=== PATIENT | male | born 1980 | race Caucasian/White ===

== ENCOUNTER 2018-12-07 22:31 | Emergency (ER) | payer MEDICAID, OTHER ==
[~2018-12-07] VITALS: Wt 85.0 kg
[2018-12-07 22:42] VITALS: Wt 85.0 kg
--- NOTE | 2018-12-07 23:51 | ERD ---
ER Documentation Chief Complaint Chief Complaint bib ra 89 c/o headache since this am HPI This is a 38-year-old male who presents here in the emergency department, brought in by ambulance for left-sided headache. Patient stated that he had a fall while he was in the shower couple of days ago, fell backwards, had a loss of consciousness and did not seek medical attention for this. Stated that he has history of headaches before but this is the worst headache of his life. Also complains of light sensitivity. Denies dizziness, neck pain, neck stiffness, throat pain, difficulty swallowing, difficulty breathing lying flat, shoulder pain, chest pain, back pain, abdominal pain, nausea, vomiting, constipation, diarrhea, urinary symptoms, loss of bowel and bladder control, trauma, injury, falls, difficulty walking due to pain, numbness or tingling sensation, calf pain, recent travel, recent major surgery in the last 3 weeks, calf pain, recent long travel, recent exposure to any illness, recent antibiotic use in the last 3 months, fever, chills, seizures. Past medical history: Surgical history: Appendectomy. Family history: Father had a stroke at age of 55. Social: Denies smoking, use of alcoholic beverages, use of illegal drugs. ROS All systems reviewed and are negative except as per history of present illness. Medications Home Meds Active Scripts Meclizine Hcl* (Antivert*) 12.5 Mg Tab, 12.5 MG PO Q6H PRN for DIZZINESS, #20 TAB Prov:PASILABAN,ASHLEYAR F 12/08/18 Slqfqcnihx-Ibzostfcaowuo-Cmsntfin* (Fioricet*) 50-300-40 Mg Capsule, 1 CAP PO Q4H PRN for HEADACHE, #15 CAP Prov:PASILABAN,ASHLEYAR F 12/08/18 Ibuprofen* (Motrin*) 800 Mg Tab, 800 MG PO Q6H PRN for PAIN AND OR ELEVATED TEMP, #30 TAB Prov:PASILABAN,ASHLEYAR F 12/08/18 Metoclopramide* (Reglan*) 10 Mg Tablet, 10 MG PO Q6 PRN for NAUSEA AND/OR VOMITING, #20 TAB Prov:PASILABAN,KLAR F 12/08/18 Allergies Allergies: Coded Allergies: No Known Drug Allergies (Verified Allergy, Unknown, 12/07/18) PMhx/Soc Medical and Surgical Hx: pt denies Medical Hx, pt denies Surgical Hx Hx Alcohol Use: No Hx Substance Use: No Hx Tobacco Use: Yes Smoking Status: Current some day smoker Physical Exam Vitals Physical Exam Const: No acute respiratory distress. Head: Atraumatic. Normocephalic. Scalp is intact. Eyes: Normal Conjunctiva. There is no visual field loss. Extraocular movement of his eyes are within normal limits. ENT: Normal External Ears, Nose and Mouth. Bilateral ears: TMs are not erythematous. No bleeding. No discharge. No hearing loss. No mastoid tender ness. Nose: Midline without deviation. No septal hematoma. There is no frontal or maxillary sinus tenderness to palpation. Throat: Uvula is midline and nondisplaced. Tonsils are +1 bilaterally without redness and without exudates. Tolerating secretions. Patent airway. Speaks full and clear sentences. Neck: Full range of motion. No meningismus. No nuchal rigidity. No signs of meningeal irritation. Resp: Clear to auscultation bilaterally Cardio: Regular rate and rhythm, no murmurs Abd: Soft, non tender, non distended. Normal bowel sounds. No abdominal tenderness. Skin: No petechiae or rashes. Color appears normal for ethnicity. Back: No midline or flank tenderness Ext: No cyanosis, or edema Neur: Awake and alert. No obvious facial droop. Follows commands. 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 Equal strength in bilateral upper and lower extremities. Romberg test is negative. No neurological deficits. Psych: Normal Mood and Affect Results 24 hrs Laboratory Tests Test 12/08/18 00:18 12/08/18 03:19 White Blood Count 9.0 10^3/ul Red Blood Count 5.25 10^6/ul Hemoglobin 15.7 g/dl Hematocrit 46.4 % Mean Corpuscular Volume 88.4 fl Mean Corpuscular Hemoglobin 29.9 pg Mean Corpuscular Hemoglobin Concent 33.8 g/dl Red Cell Distribution Width 11.7 % Platelet Count 271 10^3/UL Mean Platelet Volume 9.0 fl Immature Granulocytes % 0.300 % Neutrophils % 60.1 % Lymphocytes % 26.7 % Monocytes % 7.4 % Eosinophils % 4.8 % Basophils % 0.7 % Nucleated Red Blood Cells % 0.0 /100WBC Immature Granulocytes # 0.030 10^3/ul Neutrophils # 5.4 10^3/ul Lymphocytes # 2.4 10^3/ul Monocytes # 0.7 10^3/ul Eosinophils # 0.4 10^3/ul Basophils # 0.1 10^3/ul Nucleated Red Blood Cells # 0.0 10^3/ul Prothrombin Time 12.5 Sec Prothrombin Time Ratio 1.0 INR International Normalized Ratio 0.92 Activated Partial Thromboplast Time 31.2 Sec Sodium Level 141 mmol/L Potassium Level 3.8 mmol/L Chloride Level 104 mmol/L Carbon Dioxide Level 29 mmol/L Anion Gap 8 Blood Urea Nitrogen 15 mg/dl Creatinine 0.79 mg/dl Est Glomerular Filtrat Rate mL/min > 60 mL/min Glucose Level 116 mg/dl Calcium Level 9.5 mg/dl Total Bilirubin 0.5 mg/dl Direct Bilirubin 0.00 mg/dl Indirect Bilirubin 0.5 mg/dl Aspartate Amino Transf (AST/SGOT) 38 IU/L Alanine Aminotransferase (ALT/SGPT) 65 IU/L Alkaline Phosphatase 77 IU/L Troponin I < 0.012 ng/ml Total Protein 7.4 g/dl Albumin 4.5 g/dl Globulin 2.90 g/dl Albumin/Globulin Ratio 1.55 Urine Color STRAW Urine Clarity CLEAR Urine pH 6.0 Urine Specific [place] 1.011 Urine Ketones NEGATIVE mg/dL Urine Nitrite NEGATIVE mg/dL Urine Bilirubin NEGATIVE mg/dL Urine Urobilinogen NEGATIVE mg/dL Urine Leukocyte Esterase NEGATIVE Song/ul Urine Hemoglobin NEGATIVE mg/dL Urine Glucose NEGATIVE mg/dL Urine Total Protein NEGATIVE mg/dl Urine Opiates Screen Negative Urine Barbiturates Negative Urine Amphetamines Screen Negative Urine Benzodiazepines Screen Negative Urine Cocaine Screen Negative Urine Cannabinoids Negative Current Medications Medications Dose Sig/Rasta Start Time Status Last (Trade) Ordered Route PRN Stop Time Admin Dose Reason Admin 25 mg ONCE ONCE 12/08/18 DC 12/08/18 Diphenhydrami IV 00:00 12/08/18 00:26 ne HCl 00:01 (Benadryl) 10 mg ONCE ONCE 12/08/18 DC 12/08/18 Metoclopramid IV 00:00 12/08/18 00:26 e HCl 00:01 (Reglan) Sodium 1,000 ml @ Q1H ONCE 12/08/18 DC 12/08/18 Chloride 1,000 mls/hr IV 00:00 12/08/18 00:22 00:59 Procedures/MDM Diagnostic tests: EKG: Normal sinus rhythm with a ventricular rate of 66 bpm. No STEMI. Read by supervising physician. Urinalysis: Reviewed. Urine drug screen: Blood works: Reviewed. CT of the brain without contrast: Negative unenhanced head CT. Treatment: Saline lock. Normal saline IV bolus. Reglan IV. Benadryl IV. Re-evaluation: Denies headache. No episode of emesis here in the emergency department. Romberg test negative. No neurological deficits. Ambulatory with steady gait. Stated that he feels much better at this time and that he is ready to go home. Family member stated that he looks so much better at this time and that they are ready to go home. Patient and family member stated that they are comfortable to go home. Differential diagnosis I have low suspicion for subarachnoid hemorrhage, epidural hematoma, subdural hematoma, stroke, uncontrolled hypertension, meningitis. Final diagnosis: Migraine. Headache. Possible hypertension. Prescription: Fioricet. Motrin. Reglan. Antivert. Follow-up with PCP in the next 24-48 hours. PCP to refer patient to neurologist if symptoms persist in the next 4 to 5 days. Come back here in the emergency department for any new symptoms or any worsening symptoms. All questions and concerns were answered. Patient and family members verbalized understanding and agreed with plan of care. Hemodynamically stable on discharge. Departure Diagnosis: Primary Impression: Headache Additional Impression: Migraine Condition: Stable Additional Instructions: Follow-up with PCP in the next 24-48 hours. PCP to refer patient to neurologist if symptoms persist in the next 4 to 5 days. Come back here in the emergency department for any new symptoms or any worsening symptoms. FELICIA OLIVARES December 07, 2018 23:51
[2018-12-08] MEDS ORDERED: SOD CHLORIDE 0.9% 1,000 ML IV ONE
[2018-12-08] MEDS ORDERED: DIPHENHYDRAMINE 50 MG INJ IV ONE
[2018-12-08] MEDS ORDERED: METOCLOPRAMIDE 10 MG INJ IV ONE
[2018-12-08 04:15] VITALS: BP 125/80; PULSE 62; RESP 19
[2018-12-08] MEDS ORDERED: METO10TA92 PO (04:23)
[2018-12-08] MEDS ORDERED: IBUP800T48 PO (04:24)
[2018-12-08] MEDS ORDERED: BUTA1CAP38 PO (04:24)
[2018-12-08] MEDS ORDERED: MECL12.574 PO (04:24)
== END 2018-12-08 04:32 | disposition home or self-care (01) ==
LOC: FTE 22:31
DX: G43.909 Migraine, unspecified, not intractable, without status migrainosus (principal); Z87.891 Personal history of nicotine dependence
CPT/HCPCS: 36415; 70450; 80053; 80307; 81003; 84484; 85025; 85610; 85730; 93005; 96361; 96374; 96375; J1200; J2765; J7030; Z7502